=== PATIENT | male | born 2005 | race Caucasian/White ===

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

== ENCOUNTER 2023-07-03 16:54 | Emergency (ER) | payer BC, OTHER ==
--- NOTE | 2023-07-03 17:45 | ED ---
ENT HPI - General Chief complaint: ENT Stated complaint: throat abcess Time Seen by Provider: 07/03/23 17:12 Source: patient Mode of arrival: ambulatory Limitations: no limitations - History of Present Illness Initial comments: 18-year-old male presenting to the ED with complaints of sore throat. Patient states onset of sore throat 3 days ago. Also states that he noticed he was drooling as well when he has been sleeping as he has been waking up with pools of spit which has also been worsening since onset. He reports that breathing seems more difficult however denies shortness of breath. Does note associated fever with this. For this was seen at [facility] urgent care who advised him to present to the ED for further evaluation as he was noted to have a peritonsillar abscess upon examination there. No other complaints at this time. - Related Data Previous Rx's Medication Instructions Recorded Amoxic-Pot Clav 875-125Mg 1 tab PO Q12HR 10 Days #20 tab 07/04/23 [Augmentin 875-125] Allergies Allergy/AdvReac Type Severity Reaction Status Date / Time No Known Allergies Allergy Verified 07/03/23 16:56 Review of Systems ROS Statement: Those systems with pertinent positive or pertinent negative responses have been documented in the HPI. ROS Other: All systems not noted in ROS Statement are negative. Past Medical History Past Medical History: No Reported History History of Any Multi-Drug Resistant Organisms: None Reported Past Surgical History: No Surgical Hx Reported Past Psychological History: Anxiety, Depression Smoking Status: Never smoker Past Alcohol Use History: Occasional Past Drug Use History: None Reported General Exam Limitations: no limitations General appearance: alert, in no apparent distress ENT exam: Present: other (Increased secretions however tolerating. No stridor. There is a right peritonsillar abscess with some purulent drainage noted.) Respiratory exam: Present: normal lung sounds bilaterally Cardiovascular Exam: Present: regular rate GI/Abdominal exam: Present: soft, normal bowel sounds. Absent: distended, tenderness, guarding, rebound, rigid Neurological exam: Present: alert, oriented X3 Skin exam: Present: warm, dry Course Vital Signs 07/03/23 07/03/23 07/04/23 16:56 22:00 02:05 Temperature 100.5 F H Pulse Rate 124 H 82 72 Respiratory 18 18 18 Rate Blood Pressure 131/75 129/67 130/68 O2 Sat by Pulse 97 97 98 Oximetry Procedures - Incision & Drainage Site: oral Size (cm): 1 Anesthetic Used: lidocaine 1%, without epi Amount (mLs): 2 Sterile Field Used?: No Needle Aspiration Performed?: Yes I&D Drainage Obtained: Pus (2.5ml), Blood Culture Obtained?: Yes Patient Tolerated Procedure: well, no complications Medical Decision Making - Medical Decision Making Was pt. sent in by a medical professional or institution (, NILESH, COMMUNITY HEALTH PLANNING DIRECTOR, urgent care, hospital, or fdc...) When possible be specific @ -[facility] care Did you speak to anyone other than the patient for history (EMS, parent, family, police, friend...)? What history was obtained from this source @ -No Did you review nursing and triage notes (agree or disagree)? Why? @ -I reviewed and agree with nursing and triage notes Were old charts reviewed (outside hosp., previous admission, EMS record, old EKG, old radiological studies, urgent care reports/EKG's, fdc records)? Report findings @ -No old charts were reviewed Differential Diagnosis (chest pain, altered mental status, abdominal pain women, abdominal pain men, vaginal bleeding, weakness, fever, dyspnea, syncope, headache, dizziness, GI bleed, back pain, seizure, CVA, palpatations, mental health, musculoskeletal)? @ -Peritonsillar abscess, retropharyngeal abscess, Jovon's angina. This not meant to be an inclusive list. EKG interpreted by me (3pts min.). @ -As above X-rays interpreted by me (1pt min.). @ -None done CT interpreted by me (1pt min.). @ -CT interpreted me showing right tonsillar abscess measuring approximate 1.5 cm in diameter. U/S interpreted by me (1pt. min.). @ -None done What testing was considered but not performed or refused? (CT, X-rays, U/S, labs)? Why? @ -None What meds were considered but not given or refused? Why? @ -None Did you discuss the management of the patient with other professionals (professionals i.e. NILESH Gee, COMMUNITY HEALTH PLANNING DIRECTOR, lab, RT, psych nurse, social media sr strategy manager, mail room, teacher, special forces warrant officer, block and case maker)? Give summary @ -No Was smoking cessation discussed for >3mins.? @ -No Was critical care preformed (if so, how long)? @ -No Were there social determinants of health that impacted care today? How? (Homelessness, low income, unemployed, alcoholism, drug addiction, transportation, low edu. Level, literacy, decrease access to med. care, half-way, rehab)? @ -No Was there de-escalation of care discussed even if they declined (Discuss DNR or withdrawal of care, Hospice)? DNR status @ -No What co-morbidities impacted this encounter? (DM, HTN, Smoking, COPD, CAD, Canc er, CVA, ARF, Chemo, Hep., AIDS, mental health diagnosis, sleep apnea, morbid obesity)? @ -None Was patient admitted / discharged? Hospital course, mention meds given and route, prescriptions, significant lab abnormalities, going to OR and other pertinent info. @ -Discharge 18-year-old male presents to the ED with complaints of sore throat for the past 3 days seen at urgent care prior and sent here due to findings concerning for peritonsillar abscess. On exam does have evidence of peritonsillar abscess however tolerating secretions. No stridor. No respiratory distress. CT was obtained which showed this right tonsillar abscess measuring 1.5 cm in diameter. Laboratory studies performed significant for an elevated white blood cell count at 20. Patient was given 3 g of Unasyn here and dose of steroids. Patient had successful needle aspiration with approximately 2.5 to 3 mL of purulent aspirate obtained. This was sent for culture. After aspiration, patient had significant improvement of symptoms. Tolerating secretions. P.o. challenge without difficulty. No evidence of respiratory distress. Discharged home with prescription for Augmentin and referral to see ENT. At discharge vital signs stable afebrile. Discussed strict return precautions with patient who verbalized agreement. Undiagnosed new problem with uncertain prognosis? @ -No Drug Therapy requiring intensive monitoring for toxicity (Heparin, Nitro, Insulin, Cardizem)? @ -No Were any procedures done? @ -No Diagnosis/symptom? @ -Tonsillar abscess Acute, or Chronic, or Acute on Chronic? @ -Acute Uncomplicated (without systemic symptoms) or Complicated (systemic symptoms)? @ -Complicated Side effects of treatment? @ -No Exacerbation, Progression, or Severe Exacerbation? @ -No Poses a threat to life or bodily function? How? (Chest pain, USA, NC, pneumonia, PE, COPD, DKA, ARF, appy, cholecystitis, CVA, Diverticulitis, Homicidal, Suicidal, threat to staff... and all critical care pts) @ -Unlikely at this time - Lab Data Result diagrams: 07/03/23 18:49 07/03/23 18:49 Lab Results 07/03/23 07/03/23 07/03/23 Range/Units 18:49 18:49 18:49 WBC 20.2 H (4.0-11.0) k/uL RBC 5.14 (4.30-5.90) m/uL Hgb 15.8 (13.0-17.5) gm/dL Hct 48.2 (39.0-53.0) % MCV 93.7 (80.0-100.0) fL MCH 30.7 (25.0-35.0) pg MCHC 32.7 (31.0-37.0) g/dL RDW 12.0 (11.5-15.5) % Plt Count 252 (150-450) k/uL MPV 8.0 Neutrophils % 80 % Lymphocytes % 8 % Monocytes % 9 % Eosinophils % 0 % Basophils % 0 % Neutrophils # 16.2 H (1.3-7.7) k/uL Lymphocytes # 1.7 (1.0-4.8) k/uL Monocytes # 1.9 H (0-1.0) k/uL Eosinophils # 0.0 (0-0.7) k/uL Basophils # 0.0 (0-0.2) k/uL Sodium 136 L (137-145) mmol/L Potassium 4.0 (3.5-5.1) mmol/L Chloride 105 (98-107) mmol/L Carbon Dioxide 21 L (22-30) mmol/L Anion Gap 10 mmol/L BUN 6 L (9-20) mg/dL Creatinine 0.77 (0.66-1.25) mg/dL Est GFR (CKD-EPI)AfAm >90 (>60 ml/min/1.73 sqM) Est GFR (CKD-EPI)NonAf >90 (>60 ml/min/1.73 sqM) Glucose 111 H (74-99) mg/dL Plasma Lactic Acid Luke 1.0 (0.7-2.0) mmol/L Calcium 9.3 (8.4-10.2) mg/dL Total Bilirubin 0.9 (0.2-1.3) mg/dL AST 18 (17-59) U/L ALT 20 (4-49) U/L Alkaline Phosphatase 91 (38-126) U/L Total Protein 7.3 (6.3-8.2) g/dL Albumin 4.3 (3.5-5.0) g/dL Group A Strep (PCR) (Not Detectd) 07/03/23 Range/Units 18:49 WBC (4.0-11.0) k/uL RBC (4.30-5.90) m/uL Hgb (13.0-17.5) gm/dL Hct (39.0-53.0) % MCV (80.0-100.0) fL MCH (25.0-35.0) pg MCHC (31.0-37.0) g/dL RDW (11.5-15.5) % Plt Count (150-450) k/uL MPV Neutrophils % % Lymphocytes % % Monocytes % % Eosinophils % % Basophils % % Neutrophils # (1.3-7.7) k/uL Lymphocytes # (1.0-4.8) k/uL Monocytes # (0-1.0) k/uL Eosinophils # (0-0.7) k/uL Basophils # (0-0.2) k/uL Sodium (137-145) mmol/L Potassium (3.5-5.1) mmol/L Chloride (98-107) mmol/L Carbon Dioxide (22-30) mmol/L Anion Gap mmol/L BUN (9-20) mg/dL Creatinine (0.66-1.25) mg/dL Est GFR (CKD-EPI)AfAm (>60 ml/min/1.73 sqM) Est GFR (CKD-EPI)NonAf (>60 ml/min/1.73 sqM) Glucose (74-99) mg/dL Plasma Lactic Acid Luke (0.7-2.0) mmol/L Calcium (8.4-10.2) mg/dL Total Bilirubin (0.2-1.3) mg/dL AST (17-59) U/L ALT (4-49) U/L Alkaline Phosphatase (38-126) U/L Total Protein (6.3-8.2) g/dL Albumin (3.5-5.0) g/dL Group A Strep (PCR) NOT DETECTED (Not Detectd) Disposition Clinical Impression: Tonsillar abscess Disposition: HOME SELF-CARE Condition: Good Additional Instructions: Please return to the Emergency Department if symptoms worsen or any other concerns. Please follow-up with ENT. Take antibiotics as prescribed. Prescriptions: Amoxic-Pot Clav 875-125Mg [Augmentin 875-125] 1 tab PO Q12HR 10 Days #20 tab Is patient prescribed a controlled substance at d/c from ED?: No Referrals: Melissa Sullivan MD [Primary Care Provider] - 1-2 days Jaime Lin MD [STAFF PHYSICIAN] - 1-2 days Time of Disposition: 03:20
[2023-07-03] MEDS: HYDROmorphone 0.5 MG/0.5 ML SYRINGE IVP STA ×2 (19:22→23:56)
[2023-07-03] MEDS: DEXAMETHASONE SOD PHOSPHATE 10 MG/ML 1 ML VIAL IVP STA (19:24)
[2023-07-03 19:26] LABS: Basophils % (A) 0 %; Eosinophils % (A) 0 %; HCT 48.2 % (39.0-53.0); HGB 15.8 gm/dL (13.0-17.5); Lymphocytes # (A) 1.7 k/uL (1.0-4.8); Lymphocytes % (A) 8 %; MCH 30.7 pg (25.0-35.0); MCHC 32.7 g/dL (31.0-37.0); MCV 93.7 fL (80.0-100.0); Monocytes # (A) 1.9 k/uL (0-1.0); Monocytes % (A) 9 %; Neutrophils # (A) 16.2 k/uL (1.3-7.7); Neutrophils % (A) 80 %; Platelet Count 252 k/uL (150-450); RBC 5.14 m/uL (4.30-5.90); WBC 20.2 k/uL (4.0-11.0)
[2023-07-03 19:53] LABS: ALT 20 U/L (4-49); AST 18 U/L (17-59); African American GFR (CKD) >90 (>60 ml/min/1.73 sqM); Albumin 4.3 g/dL (3.5-5.0); Alkaline Phosphatase 91 U/L (38-126); Anion Gap 10 mmol/L; Blood Urea Nitrogen 6 mg/dL (9-20); Calcium 9.3 mg/dL (8.4-10.2); Carbon Dioxide 21 mmol/L (22-30); Chloride 105 mmol/L (98-107); Glucose 111 mg/dL (74-99); Non-African American GFR(CKD) >90 (>60 ml/min/1.73 sqM); Sodium 136 mmol/L (137-145); Total Bilirubin 0.9 mg/dL (0.2-1.3); Total Protein 7.3 g/dL (6.3-8.2)
[2023-07-03] MEDS: ACETAMINOPHEN TAB 500 MG TAB PO STA (21:06)
[2023-07-03] MEDS: AMPICILLIN-SULBACTAM 3 GM in SODIUM CHLORIDE 0.9% 100 ML IVPB STA (21:31)
[2023-07-03] MEDS: SODIUM CHLORIDE 0.9% 500 ML 500 ML IV SCH (21:31)
--- NOTE | 2023-07-03 21:43 | CT ---
EXAMINATION TYPE: CT soft tissue neck w con DATE OF EXAM: 07/03/2023 COMPARISON: None HISTORY: throat pain and swelling CT DLP: 324 mGycm CONTRAST: Patient injected with 100 ml mL of Isovue 300. TECHNIQUE: Axial images at 3 mm thick sections. Reconstructed images in the coronal plane and sagitt al plane are reviewed. FINDINGS: Limited CT sections are obtained the lung apices. The lung apices appear clear. CT neck: The torus tubarius and fossa of Rosenmuller are normal. Retail Loss Prevention Officer spaces are normal. Para nasal sinuses and mastoid air cells are clear. Within the right tonsillar there is a 1.5 cm hypodensity may contain a septation. Underlying tonsilla r abscess is suspected. There are scattered lymph nodes on the right side not enlarged by CT criteria these however are asymmetric with multiple lymph nodes on the right compared to the left. Some minim al inflammatory changes in the submandibular parotid region. Report was called to emergency room by Cristian Arceo at the time of interpretation. Parotid glands appear normal and symmetrical. Submandibular glands, are normal. Parapharyngeal spac es are normal. No suspicious adenopathy is evident. The hypopharynx appears within normal limits. Vocal cord level appear symmetrical. Thyroid as visualized is normal. Osseous structures are normal. IMPRESSION: 1. Right tonsillar abscess measuring approximately 1.5 cm in diameter.
[2023-07-03] MEDS: ACETAMINOPHEN IV (For NPO) 1,000 MG in EMPTY BAG 1 BAG IVPB STA (21:53)
[2023-07-03] MEDS: KETOROLAC 15 MG/ML 1 ML VIAL IVP STA (23:57)
[2023-07-04 02:15] VITALS: PULSE 72
[2023-07-04] MEDS: ACET/COD 300 MG/30 MG STARTER PACK 6 TAB BTL PO STA (03:20)
[2023-07-04] MEDS: BENZOCAINE SPRAY 1 CAN MUCOUS MEM STA (03:21)
[2023-07-04] MEDS: AMOXIC-POT CLAV 875MG STARTER PACK 2 TAB BTL PO STA (03:21)
[2023-07-04] MEDS: LIDOCAINE 1% INJ 10MG/ML (20 ML MDV) SQ ONE (03:22)
[2023-07-04 04:00] VITALS: BP 122/86; RESP 16; TEMP 98.4
== END 2023-07-04 03:40 | disposition home or self-care (01) ==
LOC: EC 16:54
DX: J36 Peritonsillar abscess (principal); B96.89 Other specified bacterial agents as the cause of diseases classified elsewhere
CPT/HCPCS: 36415; 87651; 80053; 83605; 85025; 87040; 87070; 87205; 87075; 70491; 42700; 99284; 96365; 96368; 96375 ×3; 96376; 96361 ×4; J1100; J2001; J0295; J0131; J1885; J1170; Q9967